=== PATIENT | male | born 1990 | race Caucasian/White ===

== ENCOUNTER 2019-06-13 01:59 | Outpatient (CLI) | payer SELFPAY | END 2019-06-13 02:00 | disposition EMS.NT | LOC: EMS 01:59 | PROVIDERS: ATTEND Surgery | DX: R05 Cough (principal) ==

== ENCOUNTER 2019-06-13 03:31 | Emergency (ER) | payer MEDICAID, OTHER ==
--- NOTE | 2019-06-13 03:37 | ED Physician Documentation ---
History of Present Illness - Stated complaint Stated Complaint: C+ SWAB - History obtained from History obtained from: Patient, Police - History of Present Illness Timing: How many weeks ago (4-6) - Additonal information Additional information: patient was in a vehicle being pursued by police which subsequently led to a foot annita. police were able to catch up to patient and arrested him. patient th en states he had been coughing for 2 weeks and was having shortness of breath at times and was insisting on a COVID test. police brought patient to ED. patient now says he has been coughing for nearly 2 months. denies fever. Review of Systems Constitutional: denies: Fever Cardiac: denies: Chest pain / pressure Respiratory: reports: Dyspnea, Cough PD PAST MEDICAL HISTORY - Past Surgical History Past Surgical History: No - Present Medications Home Medications: Ambulatory Orders Medication Instructions Recorded Confirmed No Known Home Medications 10/16/12 10/16/12 - Allergies Allergies/Adverse Reactions: Allergies Allergy/AdvReac Type Severity Reaction Status Date / Time No Known Drug Allergies Allergy Verified 10/16/12 13:42 - Social History Does the pt smoke?: No Smoking Status: Never smoker Does the pt have substance abuse?: Yes PD ED PE NORMAL - Vitals Vital signs reviewed: Yes - General General: Alert and oriented X 3, No acute distress, Well developed/nourished - Respiratory Respiratory: No respiratory distress, Clear bilaterally Results - Vitals Vitals: Vital Signs - 24 hr 06/13/19 03:31 Temperature 36.8 C Heart Rate 53 L Respiratory 20 Rate Blood Pressure 157/83 H O2 Saturation 95 Oxygen O2 Source Room air PD MEDICAL DECISION MAKING - ED course Complexity details: considered differential, d/w patient ED course: in order to minimize unnecessary exposure o staff and other patients, evaluation and swab performed in tent in ED ambulance bay Departure - Departure Disposition: 01 Home, Self Care Clinical Impression: Upper respiratory infection Condition: Good Instructions: ED Upper Resp Infec No Abx Tx Discharge Date/Time: 06/13/19 03:38
[2019-06-13 03:43] VITALS: BP 157/83
== END 2019-06-13 03:38 | disposition home or self-care (01) ==
LOC: ED 03:31
DX: J06.9 Acute upper respiratory infection, unspecified (principal)
CPT/HCPCS: 99282; 99283

== ENCOUNTER 2019-08-12 13:59 | Outpatient (CLI) | payer SELFPAY | END 2019-08-12 14:00 | disposition EMS.NT | LOC: EMS 13:59 | PROVIDERS: ATTEND Surgery | DX: Z03.89 Encounter for observation for other suspected diseases and conditions ruled out (principal) ==

== ENCOUNTER 2019-11-09 10:55 | Outpatient (CLI) | payer SELFPAY | END 2019-11-09 10:56 | disposition EMS.NT | LOC: EMS 10:55 | PROVIDERS: ATTEND Surgery | DX: R06.02 Shortness of breath (principal) ==